=== PATIENT | female | born 1990 | race American Indian/Alaskan Native ===

== ENCOUNTER 2016-11-01 09:18 | Day surgery (SDC) | payer MEDICAID, OTHER ==
--- NOTE | 2016-11-01 09:10 | History and Physical Report ---
History of Present Illness Date of examination: 10/31/16 Chief complaint: Incomplete History of present illness: Pt is a 25 year old -[place]rydein[place] female LMP 07/28/16 at 13w5d who presents with heavy vaginal bleeding for two days. Pelvic ultrasound revealed a single fetus without a heart beat surrounded by blood clot. Pt desires surgical management. Last night the pt passed the fetus, but ultrasound today confirms retained products of conception. Past History Past Medical History: no pertinent history Past Surgical History: no surgical history Family/Genetic History: hypertension Social history: no significant social history, - Obstetrical History Expected Date of Delivery: 05/04/17 Actual Gestation: 13 Week(s) 5 Day(s) : 3 Para: 1 Hx # Term Pregnancies: 1 Number of Pregnancies: 0 Spontaneous Abortions: 1 Induced : 0 Number of Living Children: 1 Medications and Allergies Allergies Allergy/AdvReac Type Severity Reaction Status Date / Time No Known Allergies Allergy Verified 10/31/16 15:02 Home Medications Medication Instructions Recorded Confirmed Last Taken Type Acetaminophen [Tylenol] 650 mg PO Q6HR PRN 10/31/16 10/31/16 Unknown History Review of Systems All systems: negative Constitutional: weakness - Physical Exam Breasts: Positive: deferred Cardiovascular: Regular rate Lungs: Positive: Clear to auscultation Abdomen: Positive: soft Extremities: Positive: normal Results All other labs normal. Assessment and Plan A: IUP at 13 wks Incomplete with retained products of conception P: Proceed with suction dilation and curettage and other indicated procedures.
[2016-11-01] MEDS ORDERED: NACL BACTERIOSTATIC INFILTRATI ONE (10:20)
--- NOTE | 2016-11-01 10:20 | Ultrasound Report ---
ULTRASOUND PELVIS COMPLETE INDICATION: Incomplete . Evaluate for retained products. COMPARISON: None similar during this . FINDINGS: Transabdominal pelvic sonography suggests a possibly retroflexed 9.5 x 6.7 x 8.6 cm uterus with echogenic, slightly heterogeneous endometrial thickening to approximately 4 cm, image 7. No significant pelvic free fluid. Neither of the ovaries visualized. CONCLUSION: Echogenic, slightly heterogeneous endometrial thickening/widening may represent hemorrhagic products/retained products of conception in the given setting of incomplete at approximately 14 weeks gestational age. Please correlate. Thank you for the opportunity to participate in this patient's care.
[2016-11-01] MEDS ORDERED: XYLOCAINE MPF 2% ONE (10:40)
[2016-11-01] MEDS ORDERED: DIPRIVAN 10 MG/ML IV ONE (10:41)
[2016-11-01] MEDS ORDERED: DILAUDID ONE ×2 (10:42→12:12)
[2016-11-01 10:49] LABS: Basophils % (Auto) 0.4 % (0.0-1.8); Eosinophils % (Auto) 1.2 % (0.0-4.3); Hematocrit 28.3 % (30.3-42.9); Hemoglobin 9.4 gm/dl (10.1-14.3); Mean Corpuscular HGB Conc 33 % (30-34); Mean Corpuscular Hemoglobin 27 pg (28-32); Mean Corpuscular Volume 81 fl (79-97); Platelet Count 281 K/mm3 (140-440); Red Blood Count 3.52 M/mm3 (3.65-5.03); Red Cell Distribution Width 14.2 % (13.2-15.2); White Blood Count 7.9 K/mm3 (4.5-11.0)
[2016-11-01] MEDS ORDERED: METHERGINE IM ONE ×2 (10:51→11:45)
[2016-11-01] MEDS ORDERED: SILVER NITRATE TP ONE ×2 (10:52→12:08)
--- NOTE | 2016-11-01 10:58 | Anesthesia Consultation ---
Anesthesia Consult and Med Hx Date of service: 11/01/16 - Airway Anesthetic Teeth Evaluation: Good, Crowns ROM Head & Neck: Adequate Mental/Hyoid Distance: Adequate Mallampati Class: Class II Intubation Access Assessment: Probably Good - Pulmonary Exam CTA: Yes - Cardiac Exam Cardiac Exam: RRR - Pre-Operative Health Status ASA Pre-Surgery Classification: ASA1 Proposed Anesthetic Plan: General - Pulmonary Hx Asthma: No COPD: No Hx Pneumonia: No - Cardiovascular System Hx Hypertension: No - Central Nervous System Hx Seizures: No Hx Psychiatric Problems: No - Endocrine Hx Renal Disease: No Hx End Stage Renal Disease: No Hx Hypothyroidism: No Hx Hyperthyroidism: No - Hematic Hx Anemia: No Hx Sickle Cell Disease: No - Other Systems Hx Alcohol Use: No Hx Cancer: No
--- NOTE | 2016-11-01 10:59 | Anesthesia Day of Surgery ---
Anesthesia Day of Surgery - Day of Surgery Patient Examined: Yes Patient H&P Reviewed: Yes Patient is NPO: Yes
[2016-11-01] MEDS ORDERED: DOXYCYCLINE HYCLATE 100 MG in NACL 0.9% 250ML 250 ML IV ONE (11:00)
[2016-11-01] MEDS ORDERED: PEPCID PO NR (11:00)
[2016-11-01] MEDS ORDERED: LACTATED RINGERS 1,000 ML IV SCH (11:00)
[2016-11-01] MEDS ORDERED: VERSED IV PRN (11:00)
[2016-11-01] MEDS ORDERED: ZOFRAN ONE (11:33)
[2016-11-01] MEDS ORDERED: NACL 0.9% IR ONE (11:37)
[2016-11-01] MEDS ORDERED: DECADRON ONE (11:47)
--- NOTE | 2016-11-01 12:05 | Operative Report ---
Operative Report Operative Report: Date of procedure: November 01, 2016 Preoperative diagnosis: Incomplete at 13 wks Postoperative diagnosis: Same Procedure: Suction Dilation and Curettage Surgeon: Cha Palmer MD Anesthesia: General with LMA Findings: 1) 12 wk sized uterus that gently sounded to 10 cm 2) Cervix 0.5 cm dilated prior to procedure EBL: 400 mL IVF: 600 mL Urine output: 50 mL, clear but will prior to procedure Specimens: products of conception to pathology Drains: None Complications: None. Counts correct x 2 Disposition: Stable to PACU Indication for procedure: Pt is a 25 year old -La[place] female LMP 07/28/16 at 13w5d who presents with heavy vaginal bleeding for two days. Pelvic ultrasound revealed a single fetus without a heart beat surrounded by blood clot. Pt desires surgical management. The night before surgery, the pt passed the fetus, but ultrasound today confirms retained products of conception. Procedure in detail: After the risks, benefits, alternatives and complications were explained to the patient she gave informed consent for the procedure. She was subsequently taken to the operating room with her IV noted to be running well. She was placed in the dorsal supine position and SCDs were noted to be in place and functioning. General anesthesia was then induced without difficulty. She was then placed in the dorsal lithotomy position and prepped and draped in a normal sterile fashion. A timeout was performed. The bladder was emptied yielding 50 mL of clear will-colored urine. A bi-valve speculum was placed into the vagina for visualization of the cervix. A single- tooth tenaculum was placed on the anterior lip of the cervix for traction. The cervix was noted to be 0.5 cm dilated prior to the procedure. It was then further dilated to #35 Benítez dilator. A number 12 rigid curved suction curette was used to evacuate the uterine cavity. A sharp curettage was done and noted to be gritty x 4 quadrants. A dose of Methergine 0.2 mg IM was given. The tenaculum was removed. Silver nitrate was placed on the puncture sites and hemostasis was noted. All instruments were then removed from the vagina and the procedure was ended. The patient was replaced into the dorsal supine position and extubated without difficulty. She was then taken to the PACU in stable condition. All counts correct x 2.
[2016-11-01] MEDS ORDERED: PERCOCET 5/325 PO PRN ×2 (12:10→12:12)
--- NOTE | 2016-11-01 12:10 | Post Anesthesia Evaluation ---
- Post Anesthesia Evaluation Patient Participated: Yes Airway Patent: Yes Stable Respiratory Function: Yes Nausea/Vomiting: No Temp > 96.8F: Yes Pain Manageable: Yes Adequeate Hydration: Yes Anesthesia Complications: No Block Receding Appropriately: Not Applicable Patient on Ventilator: No
--- NOTE | 2016-11-01 12:11 | Short Stay Summary ---
Short Stay Documentation Date of service: 11/01/16 - History H&P: dictated Social history: no significant social history, - Allergies and Medications Current Medications: Allergies No Known Allergies Allergy (Verified 10/31/16 15:02) Home Medications Medication Instructions Recorded Confirmed Last Taken Type Acetaminophen [Tylenol] 650 mg PO Q6HR PRN 10/31/16 10/31/16 Unknown History Active Medications Lactated Ringer's (Lactated Ringers) 1,000 mls @ 100 mls/hr IV DIRECT BHUMI Last Admin: 11/01/16 10:50 Dose: 100 mls/hr Midazolam HCl (Versed) 2 mg IV PREOP PRN PRN Reason: Anxiety Stop: 11/01/16 23:59 Last Admin: 11/01/16 10:59 Dose: 2 mg - Physical exam Breasts: deferred - Brief post op/procedure progress note Date of procedure: 11/01/16 Pre-op diagnosis: Incomplete at 13 wks Post-op diagnosis: same Procedure: Suction Dilation and Curettage Anesthesia: GETA (with LMA ) Findings: 1) 12 wk sized uterus that gently sounded to 10 cm 2) Cervix 0.5 cm dilated prior to procedure Surgeon: SAMY PALMER Estimated blood loss: other (400 mL) Pathology: list (products of conception) Specimen disposition: to lab Condition: stable - Hospital course Hospital course: Pt was observed in the PACU until she met discharge criteria. She will follow up in the office with Dr Palmer in 1 wk. - Disposition Condition at discharge: Stable Disposition: DISCHARGED TO HOME OR SELFCARE - Discharge Diagnoses (1) Incomplete Status: Acute (2) Anemia Status: Acute Qualifiers: Anemia type: unspecified type Iron deficiency anemia type: I Vitamin B12 deficiency anemia type: V Folate deficiency anemia type: F Bone marrow failure anemia type: B Hemolytic anemia type: H Other causes of anemia: O Qualified Code(s): D64.9 - Anemia, unspecified Short Stay Discharge Plan Activity: other (Nothing in vagina x 4 wks ) Weight Bearing Status: Full Weight Bearing Diet: regular Additional Instructions: If there is bleeding filling one pad per hour for two hours, call your doctor. Follow up with: SAMY PALMER MD [Staff Physician] - 11/11/16 (postoperative exam ) Prescriptions: RX: Doxycycline Hyclate [Doxycycline Hyclate TAB] 100 mg PO Q12HR #14 tab RX: Ibuprofen [Motrin 600 MG tab] 600 mg PO Q6H PRN #30 tablet PRN Reason: Pain Methylergonovine [Methergine] 0.2 mg PO Q8HR #3 tablet oxyCODONE /ACETAMINOPHEN [Percocet 5/325] 1 tab PO Q6HR PRN #20 tablet PRN Reason: Pain
[2016-11-01] MEDS ORDERED: MOTRIN PO PRN (12:12)
[2016-11-01] MEDS: DILAUDID IV PRN ×2 (12:20→12:45)
[2016-11-01 14:02] VITALS: BP 117/80
== END 2016-11-01 13:45 | disposition home or self-care (01) ==
LOC: OR 09:18
PROVIDERS: ATTEND Obstetrics & Gynecology
DX: O03.4 Incomplete spontaneous abortion without complication (principal); D64.9 Anemia, unspecified; Z82.49 Family history of ischemic heart disease and other diseases of the circulatory system
CPT/HCPCS: 36415; 59812; 76856; 85025; 88305; J1100; J1170; J2210; J2250; J2405; J2704; J7050; J7120

== ENCOUNTER 2018-04-17 10:14 | Inpatient (IN) | payer MEDICAID ==
[2018-04-17] MEDS ORDERED: SUBLIMAZE ONE (11:06)
[2018-04-17] MEDS ORDERED: LACTATED RINGERS 1,000 ML ONE ×2 (11:07→11:11)
[2018-04-17] MEDS ORDERED: PITOCin/NS 20 UNIT/1000ML DRIP 20,000 MILLIUNITS/1,000 ML BAG IV ONE (11:12)
[2018-04-17] MEDS ORDERED: POLYCILLIN/NS 2 GM/100 ML 2 GM/100 ML BAG IV ONE ×2 (11:20→12:18)
[2018-04-17] MEDS ORDERED: METHERGINE IM ONE ×2 (11:41→12:21)
[2018-04-17] MEDS ORDERED: MINERAL OIL PO PRN (12:18)
[2018-04-17] MEDS ORDERED: SUBLIMAZE IV PRN (12:18)
[2018-04-17] MEDS ORDERED: XYLOCAINE 2% INFILTRATI ONE (12:18)
[2018-04-17] MEDS ORDERED: BRETHINE SUB-Q PRN (12:18)
[2018-04-17] MEDS ORDERED: NARCAN 0.4 MG/1 ML IV PRN (12:18)
[2018-04-17] MEDS ORDERED: BRETHINE IVP PRN (12:18)
[2018-04-17] MEDS ORDERED: ZOFRAN IV PRN ×2 (12:18→14:49)
--- NOTE | 2018-04-17 12:28 | History and Physical Report ---
History of Present Illness Date of examination: 04/17/18 Date of admission: 04/17/18 10:24 Chief complaint: contractions History of present illness: Pt is a 27 year old -[place] female ALBA 04/17/18 at 40w0d who presents with regular contractions since last night and advanced cervical dilation of 9 cm on admission. She denies vaginal bleeding or leakage of fluid. She has had care at [facility] since 13 wks complicated by placenta previa that resolved in October 2017, and h/o shortened femur in prior and subsequent MFM referral with normal ultrasound. She is GBS negative. Past History Past Medical History: no pertinent history Past Surgical History: D&C Family/Genetic History: hypertension Social history: - Obstetrical History Expected Date of Delivery: 04/17/18 Actual Gestation: 40 Week(s) 0 Day(s) : 4 Para: 1 Hx # Term Pregnancies: 1 Number of Pregnancies: 0 Spontaneous Abortions: 2 Induced : 0 Number of Living Children: 1 Medications and Allergies Allergies Allergy/AdvReac Type Severity Reaction Status Date / Time No Known Allergies Allergy Verified 10/31/16 15:02 Home Medications Medication Instructions Recorded Confirmed Last Taken Type No Known Home Medications [No 03/24/18 03/24/18 Unknown History Reported Home Medications] Active Meds: Active Medications Ephedrine Sulfate (Ephedrine Sulfate) 10 mg IV Q2M PRN PRN Reason: Hypotension Fentanyl (Sublimaze) 100 mcg IV Q2H PRN PRN Reason: Labor Pain Ampicillin Sodium (Polycillin/Ns 2 Gm/100 Ml) 2 gm in 100 mls @ 100 mls/hr IV ONCE ONE; Protocol Stop: 04/17/18 13:17 Lactated Ringer's (Lactated Ringers) 1,000 mls @ 125 mls/hr IV DIRECT BHUMI Oxytocin/Sodium Chloride (Pitocin/Ns 20 Unit/1000ml Drip) 20 units in 1,000 mls @ 125 mls/hr IV DIRECT BHUMI Oxytocin/Sodium Chloride (Pitocin/Ns 30 Unit/500ml) 30 units in 500 mls @ 1 mls /hr IV TITR BHUMI; Protocol Lidocaine (Xylocaine 2%) 20 ml INFILTRATI ONCE ONE Stop: 04/17/18 12:19 Methylergonovine Maleate (Methergine) 0.2 mg IM ONCE ONE Stop: 04/17/18 12:22 Mineral Oil (Mineral Oil) 30 ml PO QHS PRN PRN Reason: Constipation Naloxone HCl (Narcan 0.4 Mg/1 Ml) 0.1 mg IV Q2MIN PRN PRN Reason: Res Rate </= 8 or 02 SAT < 92% Ondansetron HCl (Zofran) 4 mg IV Q8H PRN PRN Reason: Nausea And Vomiting Terbutaline Sulfate (Brethine) 0.25 mg SUB-Q ONCE PRN PRN Reason: Hyperstimulation/Hypertonicity Terbutaline Sulfate (Brethine) 0.25 mg IVP ONCE PRN PRN Reason: Hyperstimulation/Hypertonicity Review of Systems All systems: negative - Vital Signs Vital signs: Vital Signs Pulse BP 90 123/88 04/17/18 11:38 04/17/18 11:38 Temp Pulse Resp BP Pulse Ox 58 L 129/64 04/17/18 12:23 04/17/18 12:23 - Physical Exam Breasts: Positive: deferred Cardiovascular: Regular rate Lungs: Positive: Clear to auscultation Abdomen: Positive: soft (gravid ) Genitourinary (Female): Positive: normal external genitalia Uterus: Positive: enlarged (gravid ) Extremities: Positive: normal - Obstetrical FHR: category 2 Uterine Contraction Monitor Mode: External Cervical Dilatation: 10 Cervical Effacement Percentage: 100 station: +1 Uterine Contraction Pattern: Regular Uterine Tone Measurement Phase: Resting Uterine Contraction Intensity: Strong/Firm Results All other labs normal. Assessment and Plan A: IUP at 40w0d Second Stage Labor GBS negative P: Admit to labor and delivery Routine intrapartum care
--- NOTE | 2018-04-17 12:30 | Procedure Note ---
OB Delivery Note - Delivery Date of Delivery: 04/17/18 Surgeon: SAMY RAMIREZ Estimated blood loss: 500cc - Vaginal Delivery presentation: vertex Delivery position: OA Intrapartum events: meconium, precipitous labor- <3hr, uterine atony Delivery induction: none Delivery monitor: external FHT, external uterine Route of delivery: Delivery placenta: spontaneous Episiotomy: none Delivery laceration: none Anesthesia: none Delivery comments: Pt progressed to complete/complete/+1 and pushed to deliver a viable female over intact perineum via under no anesthesia under no anesthesia. Head delivered in SENG position, followed by shoulders and body. bulb suctioned at delivery. Cord clamped and cut and handed to NICU staff in attendance for meconium. Cord blood collected. Placenta delivered spontaneously. Uterus atonic despite pitocin administration. Methergine 0.2 mg IM given. Uterine tone improved. Vagina and pernieum explored. No lacerations noted. EBL 500 mL. - A at 1 minute: 8 at 5 minutes: 9 Gender: Female (2762g (6lb 1 oz) @ 1129 am)
[2018-04-17 12:33] LABS: Hemoglobin 11.4 gm/dl (10.1-14.3); Mean Corpuscular HGB Conc 33 % (30-34); Mean Corpuscular Hemoglobin 28 pg (28-32); Mean Corpuscular Volume 85 fl (79-97); Platelet Count 352 K/mm3 (140-440); Red Blood Count 4.14 M/mm3 (3.65-5.03)
[2018-04-17] MEDS ORDERED: PITOCin/NS 30 UNIT/500ML 30 UNITS/500 ML BAG IV SCH (13:00)
[2018-04-17] MEDS ORDERED: PITOCin/NS 20 UNIT/1000ML DRIP 20 UNITS/1,000 ML BAG IV SCH ×2 (13:00→14:49)
[2018-04-17] MEDS ORDERED: LACTATED RINGERS 1,000 ML IV SCH (13:00)
[2018-04-17] MEDS ORDERED: MOTRIN PO ONE (13:25)
[2018-04-17] MEDS ORDERED: DULCOLAX PR PRN (14:49)
[2018-04-17] MEDS ORDERED: BENADRYL PO PRN (14:49)
[2018-04-17] MEDS ORDERED: LANSINOH TP PRN ×2 (14:49)
[2018-04-17] MEDS ORDERED: PHENERGAN PR PRN (14:49)
[2018-04-17] MEDS ORDERED: SODIUM CHLORIDE FLUSH SYRINGE 10 ML IV SCH (14:49)
[2018-04-17] MEDS ORDERED: DERMOPLAST TP PRN (14:49)
[2018-04-17] MEDS ORDERED: PHENERGAN PO PRN (14:49)
[2018-04-17] MEDS ORDERED: MILK OF MAGNESIA PO PRN (14:49)
[2018-04-17] MEDS ORDERED: TUCKS PAD TP PRN (14:49)
[2018-04-17] MEDS ORDERED: TYLENOL PO PRN (14:49)
[2018-04-17] MEDS: NORCO 5/325 PO PRN (15:27)
[2018-04-17] MEDS: MOTRIN PO SCH (19:56)
[2018-04-18] MEDS: NORCO 5/325 PO PRN ×2 (00:47→09:01)
[2018-04-18] MEDS: MOTRIN PO SCH ×2 (04:00→12:35)
[2018-04-18 05:51] LABS: Hematocrit 26.2 % (30.3-42.9); Hemoglobin 8.6 gm/dl (10.1-14.3)
[2018-04-18] MEDS ORDERED: BOOSTRIX IM ONE (06:00)
[2018-04-18] MEDS: FEOSOL PO SCH (09:00)
[2018-04-18] MEDS ORDERED: M-M-R II VACCINE SUB-Q ONE (12:22)
[2018-04-19] MEDS: MOTRIN PO SCH ×2 (00:35→07:26)
[2018-04-19] MEDS: FEOSOL PO SCH (00:35)
[2018-04-19] MEDS: NORCO 5/325 PO PRN ×2 (00:36→07:28)
[2018-04-19 03:06] VITALS: BP 112/69
--- NOTE | 2018-04-19 09:48 | Progress Note ---
Subjective - Subjective Date of service: 04/19/18 Interval history: Patient was complaining of feeling lightheaded on yesterday but that has since resolved. Patient had large blood loss but is now recovered. Plan for discharge on today. Patient reports: appetite normal, voiding normally, pain well controlled, ambulating normally Objective - Vital Signs Latest vital signs: Vital Signs Temp Pulse Resp BP BP Pulse Ox 04/19/18 09:16 98.7 F 78 18 112/69 04/19/18 08:24 69 99 04/19/18 00:00 98.6 F 78 18 112/69 04/18/18 17:11 98.4 F 86 20 125/75 100 Intake and Output 04/18/18 04/19/18 04/19/18 22:59 06:59 14:59 Intake Total 540 200 Balance 540 200 Intake: Oral 240 200 Intake, Free Water 300 Other: Total, Intake Amount 240 200 # Bowel Movements 0
--- NOTE | 2018-04-19 09:52 | Discharge Summary ---
Providers - Providers Date of Admission: 04/17/18 10:24 Date of discharge: 04/19/18 Attending physician: SAMY RAMIREZ 04/17/18 14:49 Consult to Newcomer Hostess [CONS] Routine Reason For Exam: assistance with , SNS Primary care physician: RACHEL IVORY MD Hospitalization Reason for admission: active labor Delivery: Episiotomy: none Laceration: none Other procedures: none complications: none Discharge diagnosis: IUP at term delivered [place] baby: female Hospital course: Unremarkable Condition at discharge: Good Disposition: DC-01 TO HOME OR SELFCARE Plan - Discharge Medications Prescriptions: Ferrous Sulfate [Feosol 325 MG tab] 325 mg PO BID #60 tablet HYDROcodone/APAP 5-325 [[place] 5-325 mg TAB] 2 each PO Q6H PRN #15 tablet PRN Reason: Pain, Moderate (4-6) Ibuprofen [Motrin 600 MG tab] 600 mg PO Q6HR #30 tablet - Provider Discharge Summary Activity: routine, no sex for 6 weeks, no heavy lifting 4 weeks, no strenuous exercise Diet: routine Instructions: routine Additional instructions: [] Smoking cessation referral if applicable(refer to patient education folder for contact #) [] Refer to [facility]'s [facility] Booklet Call your doctor immediately for: * Fever > 100.5 * Heavy vaginal bleeding ( >1 pad per hour) * Severe persistent headache * Shortness of breath * Reddened, hot, painful area to leg or breast * Drainage or odor from incision. * Keep incision clean and dry at all times and follow doctor's instructions regarding bathing/showering - Follow up plan Follow up: RACHEL IVORY MD [Primary Care Provider] - 6 Weeks
== END 2018-04-19 14:50 | disposition home or self-care (01) | DRG 775 ==
LOC: TRG 10:14 → LD 10:24 → OB 14:44
PROVIDERS: ADMIT Obstetrics & Gynecology; ATTEND Obstetrics & Gynecology
PROC: 10E0XZZ Delivery of Products of Conception, External Approach (ICD-10-PCS; principal; 2018-04-17)
PROC: 3E0234Z Introduction of Serum, Toxoid and Vaccine into Muscle, Percutaneous Approach (ICD-10-PCS; 2018-04-18)
DX: O77.0 Labor and delivery complicated by meconium in amniotic fluid (principal); O62.3 Precipitate labor; Z37.0 Single live birth; Z82.49 Family history of ischemic heart disease and other diseases of the circulatory system; Z3A.40 40 weeks gestation of pregnancy; Z23 Encounter for immunization
CPT/HCPCS: 36415; 85014; 85018; 85027; 86592; 86850; 86900; 86901; J0290; J2210; J2590; J3010; J7120